=== PATIENT | female | born 1945 | race Caucasian/White ===

== ENCOUNTER 2020-04-08 17:02 | Emergency (ER) | payer MEDICARE, SELFPAY ==
[2020-04-08 17:04] VITALS: BP 149/117; PULSE 86; RESP 14; TEMP 36.9; O2SAT 98; BMI 43.0
--- NOTE | 2020-04-08 17:35 | EKG12_ITS ---
Test Reason : SOB Blood Pressure : / mmHG Vent. Rate : 085 BPM Atrial Rate : 085 BPM P-R Int : 170 ms QRS Dur : 082 ms QT Int : 380 ms P-R-T Axes : 056 035 022 degrees QTc Int : 452 ms Sinus rhythm with Premature atrial complexes Confirmed by VIVIANA THOMPSON, EUGENE ([id number]), make up editor AKHIL ROBB ([id number]) on 04/11/2020 10:35:13 AM Referred By: ANDREW Confirmed By:EUGENE MICHELLE MD
--- NOTE | 2020-04-08 17:35 | ED.VIS.DYS ---
History of Present Illness Chief Complaint: Shortness of Breath Informant: Patient Onset: Days Activity at onset: Rest Timing: Continuous Quality: Dyspnea on exertion, PND Worsened by: Exertion Relieved by: Nothing Associated Symptoms: Negative for: Cough, Fever, Sore throat Chest Pain: Sharp Narrative: Patient is a 77-year-old female with history of hypothyroid, hypertension and, hyperlipidemia and depression who lives in [place], currently staying with her daughter in the area presenting with worsening shortness of breath. Patient states she has had progressively worsening shortness of breath of the past year. She is been seen by pulmonology as well as cardiology and exact cause has not been found. She states over the last 3 days her shortness of breath has become significantly worse. She states she now has conversational dyspnea and is waking up multiple times at night trying to catch her breath which is new. She denies any swelling of her legs. She did have an episode where she started feel very anxious because of her breathing yesterday and then subsequently had chest pain however when she calmed her self down her chest pain resolved. She denies any history of DVT or PE. She denies any other complaints at this time. Past Medical History - Allergies and Home Meds Allergies/Adverse Reactions: Allergies No Known Allergies Allergy (Verified 04/08/20 17:03) Primary Care Physician: JORI COLUNGA [Other] Past Medical History: - - hypothyroid, hypertension and, hyperlipidemia and depression Surgical History: noncontributory Lives: With Family Smoking Status: Never smoker Review of Systems General: Reports: Malaise. Denies: Chills, Fever, Sweats Eyes: Denies: Visual changes - bilaterally, Diplopia ENT: Denies: Rhinorrhea, Sore throat Cardiovascular: Denies: Chest pain, Palpitations Respiratory: Reports: Dyspnea, Dyspnea on exertion, Paroxysmal nocturnal dyspnea. Denies: Cough, Orthopnea Gastrointestinal: Denies: Abdominal pain, Nausea, Vomiting, Diarrhea, Melena, Hematochezia Genitourinary: Denies: Dysuria, Hematuria, Frequency Musculoskeletal: Denies: Back pain, Extremity Pain Skin: Denies: Rash, Wounds Neurological: Denies: Headache, Weakness, Numbness Physical Exam Vital Signs/Narrative: Vital Signs Temp Pulse Resp BP Pulse Ox 04/08/20 17:04 98.5 F 86 14 149/117 H 98 Inital Vital Signs reviewed: Yes General: Well nourished, Well developed, Obese, No Acute Distress Head: Normocephalic, Atraumatic Eyes: Perrl, EOMI ENT: Moist mucous membranes, No rhinorrhea Neck: Supple, Nontender, No JVD Cardiovascular: Regular rate, Regular rhythm, No murmurs Respiratory: No distress, CTA bilaterally, Chest nontender, Diminished - Right base, - - Conversational dyspnea Abdomen: Soft, Nontender, Nondistended, Normal bowel sounds Back: Nontender, Normal Inspection Extremities: Nontender, No edema Skin: Normal color, No rash Neurological: Alert, Oriented x3, Cranial nerves II-XII grossly intact, Normal Strength, Normal Sensation Psychological: Normal affect, Normal Mood Diagnostic/Tx/Re-eval Chest X-Ray - ED: 1 View, Read by ED Physician, Read by Radiologist, No Acute Disease Clinical Impression(s) from Imaging Studies Chest X-Ray 04/08/20 18:10 IMPRESSION: Right lower lobe pneumonia or atelectasis. Electronically Signed: Jose Maria Hogue MD at 18:52 EST Tel , Service support , Chest CTA 04/08/20 19:16 IMPRESSION: Normal CTA chest examination, without a demonstrated pulmonary embolism or arterial dissection. Electronically Signed: Jose Maria Hogue MD at 19:41 EST Tel , Service support , Laboratory Data 04/08/20 04/08/20 04/08/20 17:35 17:35 17:35 WBC 11.4 H RBC 4.02 L Hgb 11.3 L Hct 35.0 L MCV 87.1 MCH 28.1 MCHC 32.3 RDW Std Deviation 45.8 H RDW Coeff of Elaien 14.2 Plt Count 253 MPV 10.5 Immature Gran % (Auto) 0.600 Neut % (Auto) 74.7 H Lymph % (Auto) 12.2 L [place] % (Auto) 11.7 H Eos % (Auto) 0.6 Baso % (Auto) 0.2 Absolute Neuts (auto) 8.5 H Absolute Lymphs (auto) 1.39 Nucleated RBC % 0 D-Dimer Quant (PE/DVT) 1.45 H* Sodium 136 Potassium 3.7 Chloride 104 Carbon Dioxide 24.0 Anion Gap 8 BUN 23 H Creatinine 1.36 H Estim Creat Clear Calc 36.36 Est GFR (MDRD) Af Amer 49 L Est GFR (MDRD) Non-Af 40 L BUN/Creatinine Ratio 16.9 Glucose 87 Calcium 8.0 L Troponin I < 0.015 B-Natriuretic Peptide 04/08/20 17:35 WBC RBC Hgb Hct MCV MCH MCHC RDW Std Deviation RDW Coeff of Elaine Plt Count MPV Immature Gran % (Auto) Neut % (Auto) Lymph % (Auto) [place] % (Auto) Eos % (Auto) Baso % (Auto) Absolute Neuts (auto) Absolute Lymphs (auto) Nucleated RBC % D-Dimer Quant (PE/DVT) Sodium Potassium Chloride Carbon Dioxide Anion Gap BUN Creatinine Estim Creat Clear Calc Est GFR (MDRD) Af Amer Est GFR (MDRD) Non-Af BUN/Creatinine Ratio Glucose Calcium Troponin I B-Natriuretic Peptide 74.4 - Rhythm Strip Rhythm Strip: Sinus Rhythm Rate: 85 Ectopy: PAC(s) - EKG Initial EKG Interpretation: Sinus Rhythm, - - Normal sinus rhythm at a rate of [address] intervals[address] segments Prior: No Prior Treatment - Dyspnea: Albuterol, Steroid - Medical Decision Making Evaluated for shortness of breath. Is been going on for the past year but worse over the past 3 days. Patient does have conversational dyspnea but she is not hypoxic. Her breath sounds are clear. She not have any wheezing. Cardiopulmonary work-up is obtained including EKG, chest x-ray, troponin and D-dimer. Chest x-ray shows an area of atelectasis versus infiltrate. Her D-dimer is significantly elevated however her troponin and BNP are normal. EKG does not show ischemic changes or findings consistent with ACS. CTA obtained because of elevated D-dimer and her shortness of breath. It does not show any acute process and is also not show any pneumonia. Patient is given albuterol treatment in the ER with some improvement. She is ambulated and while she feels short of breath and becomes tachypneic she is not hypoxic. Patient does request course of steroids stating that normally helps her. States she is a follow-up to see her street contractor in a little over a week and will keep that appointment. At this time we do not think patient requires inpatient admission or work-up. I think she is stable for outpatient follow-up. Patient is counseled on signs and symptoms requiring return to the emergency room. Patient verbalizes agreement and understand this plan. Patient discharged home in stable and improved condition. ED Disposition - Plan for ED Patient: Disposition: Home or Assisted Living Diagnosis: Dyspnea Instructions: ED Asthma, Acute (Adult), ED Dyspnea Prescriptions: Prednisone [Deltasone] 40 mg PO DAILY #8 tab Transmission Status: Received by [id number] Referrals: JORI COLUNGA [Other] Additional Instructions: Use albuterol inhaler 1 to 2 puffs every 4-6 hours as needed for shortness of breath. At this time you do not have signs of infection, heart failure or blood clot causing her shortness of breath. I am not sure what exactly is causing the symptoms but encourage you to continue to follow-up with your lung doctor.
--- NOTE | 2020-04-08 18:10 | RAD_ITS ---
STUDY: X-RAY CHEST REASON FOR EXAM: Female, 77 years old. SOB x1 YR -- HX OF HTN TECHNIQUE: Single AP portable view of the chest. COMPARISON: None. FINDINGS: Alveolar opacity in the lower right lung consistent with right lower lobe pneumonia or atelectasis. There is no demonstrated pleural abnormality. There is moderate cardiac enlargement. Normal mediastinum and valdo. Normal visualized pulmonary arteries. Normal visualized aortic arch and descending thoracic aorta. Normal visualized thoracic spine. Normal visualized ribs, clavicles, and shoulders. There is no demonstrated abnormality of the visualized soft tissue structures of the upper abdomen. RAD/Chest 1 View (Portable) IMPRESSION: Right lower lobe pneumonia or atelectasis. Electronically Signed: Jose Maria Hogue MD at 18:52 EST Tel , Service support ,
[2020-04-08 18:13] LABS: Absolute Lymphocyte Count 1.39 X10^3/uL (0.83-4.51); Absolute Neutrophil Count 8.5 X10^3/uL (2.0-7.7); Basophil# 0.02 X10^3/uL; Basophil% 0.2 % (0-1); Eosinophil# 0.07 X10^3/uL; Eosinophils% 0.6 % (0-5); Hemoglobin 11.3 g/dL (12.0-15.0); Lymphocyte # 1.39 X10^3/ul (4.0); Lymphocyte % 12.2 % (19-41); Mean Corp Hgb Conc 32.3 g/dL (32-36); Mean Corpuscular Hgb 28.1 pg (27.0-32.0); Mean Corpuscular Volume 87.1 fL (81-99); Mean Platelet Vol. 10.5 fl (6.2-12.0); Monocyte# 1.33 X10^3/uL; Monocyte% 11.7 % (0-10); NRBC Flagged by Analyzer 0 % (0-5); Neutrophil # 8.47 X10^3/uL (2.7-7.7); Neutrophil % 74.7 % (47-70); Platelet Count 253 K/mm3 (150-450); RBC Distribution Width CV 14.2 % (11.6-14.6); RBC Distribution Width SD 45.8 fl (35.1-43.9); Red Blood Count 4.02 M/mm3 (4.2-5.4); White Blood Count 11.4 K/mm3 (4.4-11.0)
[2020-04-08 18:26] LABS: Anion Gap 8 (5-15); BUN 23 mg/dL (7-18); BUN/Creat Ratio 16.9 RATIO (10-20); Chloride 104 mmol/L (98-107); Creatinine, Serum 1.36 mg/dL (0.55-1.02); EST Glomerular Filtration Rate 40 mL/min (>60); Est Glom Filt Rate - Afr Amer 49 mL/min (>60); Estimated Creatinine Clearance 36.36 ml/min; Glucose 87 mg/dL (74-106); Potassium 3.7 mmol/L (3.5-5.1); Sodium Level 136 mmol/L (136-145)
[2020-04-08 18:30] LABS: D-Dimer Quantitative (DVT/PE) 1.45 FEU/ug/m (0.27-0.49)
[2020-04-08 18:34] LABS: BNP,B-Type NATRIURETIC PEPTIDE 74.4 pg/mL (0-100)
[2020-04-08 19:16] VITALS: BP 138/80; PULSE 82; RESP 18; TEMP 36.9; O2SAT 96
--- NOTE | 2020-04-08 19:16 | CT_ITS ---
STUDY: CTA CHEST REASON FOR EXAM: Female, 74 years old. SOB X 1 YEAR. HX OF HTN RADIATION DOSAGE (If Supplied By Facility): CTDIvol = ( 18.6 ) mGy, DLP = ( 573.10 ) mGycm TECHNIQUE: The examination was performed with the intravenous administration of IV 100mL [id number]-[id number]. Post-processing of the angiographic images was performed, with multiplanar reformation and 3D reconstruction. Individualized dose optimization techniques were used for this CT. COMPARISON: Chest x-ray earlier today FINDINGS: Normal enhancement of the main pulmonary artery and right and left pulmonary arteries. Normal enhancement of the bilateral peripheral pulmonary arteries. There is no demonstrated pulmonary embolism. Normal thoracic aorta and visualized great vessels. There is no demonstrated aortic dissection. Normal heart and pericardium. Normal mediastinum. Normal hilar regions. Normal visualized trachea and bronchi. The lungs are well expanded. Normal pulmonary parenchyma. Normal pleura. Normal chest wall structures. Normal osseous structures. Normal visualized upper abdomen. CT/CTA Chest W/WO Contrast IMPRESSION: Normal CTA chest examination, without a demonstrated pulmonary embolism or arterial dissection. Electronically Signed: Jose Maria Hogue MD at 19:41 EST Tel , Service support ,
[2020-04-08 19:46] VITALS: O2SAT 94
[2020-04-08] MEDS: Ipratropium/Albuterol Sulfate 3 ML AMPUL.NEB INHALATION (20:25)
[2020-04-08 20:28] VITALS: PULSE 92; RESP 16
[2020-04-08 21:18] VITALS: BP 154/94; PULSE 102; RESP 16; O2SAT 94
[2020-04-08] MEDS: predniSONE 20 MG Tablet 40 MG PO (21:18)
== END 2020-04-08 21:23 | disposition home or self-care (01) ==
PROVIDERS: Emergency Provider Emergency Medicine
DX: R06.02 Shortness of breath (principal); I10 Essential (primary) hypertension; E78.5 Hyperlipidemia, unspecified; E03.9 Hypothyroidism, unspecified; E66.9 Obesity, unspecified; Z68.41 Body mass index [BMI] 40.0-44.9, adult; Z79.82 Long term (current) use of aspirin; Z79.899 Other long term (current) drug therapy
CPT/HCPCS: 71045; 71275; 80048; 83880; 84484; 85025; 85379; 87426; 93005; 94640; 96360; 99284; J7040; Q9967; A4216